=== PATIENT | male | born 1980 | race Caucasian/White ===

== ENCOUNTER 2018-04-04 00:43 | Emergency (ER) | payer OTHER ==
[~2018-04-04] VITALS: Ht 188 cm; Wt 97.5 kg
[2018-04-04] MEDS ORDERED: HYDROXYZINE HCL25 MG PO (01:30)
[2018-04-04] MEDS ORDERED: CATAPRES0.1 MG PO (01:30)
[2018-04-04] MEDS ORDERED: TRAZODONE HCL100 MG (01:31)
== END 2018-04-04 04:29 | disposition home or self-care (01) ==
LOC: ED 00:43
DX: G89.29 Other chronic pain (principal); M54.5 Low back pain; F17.200 Nicotine dependence, unspecified, uncomplicated; Z79.899 Other long term (current) drug therapy
CPT/HCPCS: 96372; 99283-25; J1885